=== PATIENT | female | born 1935 | race Caucasian/White ===

== ENCOUNTER 2017-04-09 22:20 | Emergency (ER) | payer MEDICARE, OTHER ==
[~2017-04-09] VITALS: Ht 154.9 cm; Wt 52.0 kg
[~2017-04-09 22:20] MED LIST: METR-1 PO; VANC250C2 PO
[2017-04-09] MEDS ORDERED: SODIUM CHLORIDE 0.9% FLUSH 10 ML FLUSH IVF PRN (22:30)
[2017-04-09] MEDS ORDERED: LORazepam 2 MG/ML VIAL IV PUSH ONE (22:30)
[2017-04-09 22:33] VITALS: BP 185/89; PULSE 80; RESP 25; TEMP 98; O2SAT 96
[2017-04-09 22:35] VITALS: O2SAT 100
--- NOTE | 2017-04-09 22:48 | PD ---
HPI Chief Complaint: Chest Pain Time Seen by Provider: 22:28 Travel History International Travel<30 days: No Contact w/Intl Traveler<30days: No Traveled to known affect area: No History of Present Illness HPI This is a 81-year-old female with a history of CHF, anxiety disorder, reveals intra-abdominal abscess with colitis, who is in hospice, who [facility] from the [facility] with shortness of breath and abdominal cramps. The patient has had loose stools over last 24 hours. She states they gave her medication at the nursing facility however did not help. She reports now that the discomfort is intermittent. She also reports shortness breath. When paramedics arrived, they found her to be to get neck however her sats were in the high 90s. They placed her on nasal cannula. She did calm down somewhat. She was also complaining of nausea and they administered Zofran 4 mg. There is no reported fevers, chills. There are no other complaints at the time my examination. PFSH Past Medical History Cancer: No Cardiovascular Problems: Yes (CHF) High Cholesterol: Yes Chemotherapy: Yes Congestive Heart Failure: Yes COPD: Yes Endocrine: No Gastrointestinal Disorders: Yes (Ulcer) GERD: Yes Genitourinary: No Immune Disorder: No Musculoskeletal: Yes (Fracute vertebrae and broken ribs) Neurologic: Yes Psychiatric: No Reproductive: No Respiratory: Yes Immunizations Current: Yes Migraines: Yes Pancreatitis: Yes Radiation Therapy: Yes Ulcer: Yes Menopausal: Yes Ovarian Cysts: Yes Past Surgical History Abdominal Surgery: No Appendectomy: Yes Cardiac Surgery: No Cholecystectomy: Yes Ear Surgery: No Endocrine Surgery: No Eye Surgery: No Genitourinary Surgery: No Gynecologic Surgery: Yes (Breast lumpectomy) Hysterectomy: Yes Oral Surgery: No Thoracic Surgery: No Other Surgery: Yes Social History Alcohol Use: No Tobacco Use: No Substance Use: No Allergies-Medications (Allergen,Severity, Reaction): Coded Allergies: Aspirin (Verified Adverse Reaction, Mild, "Can't take due to ulcer", ) Ibuprofen (Verified Adverse Reaction, Mild, "Can't take due to ulcer", 04/09) Reported Meds & Prescriptions Reported Meds & Active Scripts Active Vancomycin (Vancomycin HCl) 250 Mg Cap 500 Mg PO QID 10 Days Flagyl (Metronidazole) 500 Mg Tab 500 Mg PO TID 10 Days Review of Systems Except as stated in HPI: all other systems reviewed are Neg General / Constitutional: No: Fever, Chills HENT: No: Headaches, Lightheadedness Cardiovascular: Positive: Chest Pain or Discomfort, No: Palpitations (patient points to her epigastrium and says that it hurts. When asked if she has chest pain she says possibly.) Respiratory: Positive: Shortness of Breath, No: Cough Gastrointestinal: Positive: Nausea, Diarrhea (reported earlier), Abdominal Pain (epigastric and supraumbilical), No: Vomiting Genitourinary: No: Frequency, Dysuria Musculoskeletal: Positive: Edema (bilateral feet), No: Weakness, Pain Neurologic: No: Weakness, Dizziness, Headache Physical Exam Narrative GENERAL: Elderly anxious appearing female in mild respiratory discomfort. SKIN: Focused skin assessment warm/dry. HEAD: Atraumatic. Normocephalic. EYES: No scleral icterus. No injection or drainage. ENT: No nasal bleeding or discharge. Mucous membranes pink and moist. NECK: Trachea midline. Supple. No JVD. CARDIOVASCULAR: Regular rate and rhythm. No murmur appreciated. RESPIRATORY: Tachypnea. Clear to auscultation bilaterally. GASTROINTESTINAL: Abdomen soft, nondistended. No rebound or guarding. She has subjective epigastric and periumbilical discomfort. MUSCULOSKELETAL: No obvious deformities. No clubbing. No cyanosis. No edema. NEUROLOGICAL: Awake and alert. No obvious cranial nerve deficits. Motor grossly within normal limits. Normal speech. Data Data Last Documented VS Vital Signs Date Time Temp Pulse Resp B/P Pulse Ox O2 Delivery O2 Flow Rate FiO2 04/09/17 22:35 100 Nasal Cannula 2 04/09/17 22:35 80 25 04/09/17 22:33 98.0 185/89 Orders Lorazepam Inj (Ativan Inj) (04/09/17 22:30) Complete Blood Count With Diff (04/09/17 22:29) Comprehensive Metabolic Panel (04/09/17 22:29) Ckmb (Isoenzyme) Profile (04/09/17 22:29) Troponin I (04/09/17 22:29) Urinalysis - C+S If Indicated (04/09/17 22:29) Iv Access Insert/Monitor (04/09/17 22:29) Electrocardiogram (04/09/17 22:29) Ecg Monitoring (04/09/17 22:29) Oximetry (04/09/17 22:29) Oxygen Administration (04/09/17 22:29) Chest, Single Ap (04/09/17 22:29) Sodium Chloride 0.9% Flush (Ns Flush) (04/09/17 22:30) Labs Laboratory Tests Test 04/09/17 04/10/17 22:40 00:11 White Blood Count 9.2 TH/MM3 Red Blood Count 3.80 MIL/MM3 Hemoglobin 12.2 GM/DL Hematocrit 35.4 % Mean Corpuscular Volume 93.2 FL Mean Corpuscular Hemoglobin 32.0 PG Mean Corpuscular Hemoglobin 34.3 % Concent Red Cell Distribution Width 13.8 % Platelet Count 311 TH/MM3 Mean Platelet Volume 8.0 FL Neutrophils (%) (Auto) 75.0 % Lymphocytes (%) (Auto) 18.8 % Monocytes (%) (Auto) 5.4 % Eosinophils (%) (Auto) 0.4 % Basophils (%) (Auto) 0.4 % Neutrophils # (Auto) 6.9 TH/MM3 Lymphocytes # (Auto) 1.7 TH/MM3 Monocytes # (Auto) 0.5 TH/MM3 Eosinophils # (Auto) 0.0 TH/MM3 Basophils # (Auto) 0.0 TH/MM3 CBC Comment DIFF FINAL Differential Comment Urine Color LIGHT-YELLOW Urine Turbidity CLEAR Urine pH 8.0 Urine Specific [place] 1.006 Urine Protein NEG mg/dL Urine Glucose (UA) NEG mg/dL Urine Ketones NEG mg/dL Urine Occult Blood NEG Urine Nitrite NEG Urine Bilirubin NEG Urine Urobilinogen LESS THAN 2.0 MG/DL Urine Leukocyte Esterase NEG Urine RBC LESS THAN 1 /hpf Urine WBC 1 /hpf Urine Amorphous Sediment RARE Microscopic Urinalysis Comment CULT NOT INDICATED Sodium Level 139 MEQ/L Potassium Level 3.8 MEQ/L Chloride Level 103 MEQ/L Carbon Dioxide Level 30.5 MEQ/L Anion Gap 6 MEQ/L Blood Urea Nitrogen 13 MG/DL Creatinine 0.80 MG/DL Estimat Glomerular Filtration 69 ML/MIN Rate Random Glucose 101 MG/DL Calcium Level 9.5 MG/DL Total Bilirubin 0.3 MG/DL Aspartate Amino Transf 17 U/L (AST/SGOT) Alanine Aminotransferase 26 U/L (ALT/SGPT) Alkaline Phosphatase 122 U/L Total Creatine Kinase 56 U/L Troponin I LESS THAN 0.02 NG/ML Total Protein 7.3 GM/DL Albumin 3.4 GM/DL MDM Medical Decision Making Medical Screen Exam Complete: Yes Emergency Medical Condition: Yes Differential Diagnosis Acute anxiety episode versus gastroenteritis versus colitis versus COPD versus CHF Narrative Course 81-year-old female who is in hospice, who presents here with complaints of anxiety episode. The patient was feeling short of breath. She was complaining of abdominal discomfort. She's also complaining of shortness of breath. All of her laboratory tests are within normal limits. She is afebrile. She is nontoxic-appearing. She's been given Ativan 1 mg dose here in the emergency department. She'll be [facility] back to her [facility]. Diagnosis Primary Impression: Anxiety Additional Impression: Pain, abdominal Disposition: 51 HOSPICE/MED FACILITY Condition: Stable Alberto Uribe MD Apr 09, 2017 22:48
--- NOTE | 2017-04-09 22:55 | RADRPT ---
EXAM DATE/TIME: 04/09/2017 22:46 [facility] COMPARISON: CHEST SINGLE AP, September 26, 2016, 5:14. INDICATIONS : Chest pain. MEDICAL HISTORY : Chronic obstructive pulmonary disease. Carcinoma, breast. SURGICAL HISTORY : None. ENCOUNTER: Initial ACUITY: 1 day PAIN SCORE: 0/10 LOCATION: Bilateral chest FINDINGS: The heart size is normal. The lungs are clear. No effusion is seen. Clips are seen in the left axilla ry region. The bones are osteopenic. There are concave deformities at several thoracic vertebral bodi es. CONCLUSION: No acute cardiopulmonary process. Sp Mendoza MD on April 09, 2017 at 22:53 Board Certified Radiologist. This report was verified electronically.
[2017-04-09 23:33] LABS: AUTOMATED NEUTROPHIL # 6.9 TH/MM3 (1.8-7.7); BASOPHIL % 0.4 % (0.0-2.0); EOSINOPHIL % 0.4 % (0.0-4.0); HEMATOCRIT 35.4 % (35.0-46.0); HEMO FLAGS DIFF FINAL; LYMPH % 18.8 % (9.0-44.0); LYMPHOCYTE # 1.7 TH/MM3 (1.0-4.8); MEAN CELL VOLUME 93.2 FL (80.0-100.0); MEAN CORPUSCULAR HGB CONC 34.3 % (32.0-36.0); MONO % 5.4 % (0.0-8.0); PLATELET COUNT 311 TH/MM3 (150-450); RED CELL DISTRIBUTION WIDTH 13.8 % (11.6-17.2); WHITE BLOOD COUNT 9.2 TH/MM3 (4.0-11.0)
[2017-04-09 23:39] LABS: BLOOD, URINE NEG (NEG); COMMENT (UR) CULT NOT INDICATED; CULTURE IF INDICATED CULT NOT INDICATED; GLUCOSE,URINE NEG (NEG); KETONE, URINE NEG (NEG); NITRITE,URINE NEG (NEG); URINE COLOR LIGHT-YELLOW (YELLW/STRAW)
[2017-04-10 00:40] LABS: ALT (GPT) 26 U/L (10-53); ANION GAP 6 MEQ/L (5-15); AST (GOT) 17 U/L (15-37); BICARBONATE 30.5 MEQ/L (21.0-32.0); BLOOD UREA NITROGEN 13 MG/DL (7-18); CHLORIDE 103 MEQ/L (98-107); GLOMERULAR FILTRATION RATE 69 ML/MIN (>89); POTASSIUM 3.8 MEQ/L (3.5-5.1); SODIUM (NA) 139 MEQ/L (136-145)
[2017-04-10 00:44] LABS: ALKALINE PHOSPHATASE 122 U/L (45-117); TOTAL BILIRUBIN ADULT 0.3 MG/DL (0.2-1.0)
[2017-04-10 00:45] LABS: CREATINE KINASE 56 U/L (26-192)
[2017-04-10 06:21] VITALS: BP 111/55; PULSE 68; RESP 18; TEMP 98.1; O2SAT 98
--- NOTE | 2017-04-10 14:34 | EKG ---
Date Performed: 04/09/2017 Time Performed: 22:35:23 PTAGE: 81 years EKG: Sinus rhythm Since previous tracing, no significant change noted NORMAL ECG PREVIOUS TRACING : 04/08/1996 19.41 DOCTOR: Mansoor Hernandez Interpretating Date/Time 04/10/2017 14:34:13
== END 2017-04-10 06:23 | disposition hospice, inpatient (51) ==
LOC: NEPE 22:20
DX: F41.9 Anxiety disorder, unspecified (principal)
CPT/HCPCS: 71010; 80053; 81001; 82550; 84484; 85025; 93005; 96374; 99285; J2060

== ENCOUNTER 2017-04-13 13:52 | Emergency (ER) | payer OTHER ==
[2017-04-13 13:54] VITALS: BP 134/78; PULSE 75; RESP 16; TEMP 98.4; O2SAT 99
[2017-04-13] MEDS ORDERED: SENN1TAB PO (14:08)
[2017-04-13] MEDS ORDERED: POTA10CA PO (14:08)
[2017-04-13] MEDS ORDERED: FAMO20TA2 PO (14:08)
[2017-04-13] MEDS ORDERED: FURO20TA PO (14:08)
[2017-04-13] MEDS ORDERED: APIXABAN 5 MG TABLET PO ONE (14:30)
[2017-04-13] MEDS ORDERED: APIX5TAB PO (14:32)
--- NOTE | 2017-04-13 14:32 | PD ---
HPI Chief Complaint: Abnormal Results Time Seen by Provider: 14:03 Travel History International Travel<30 days: No Contact w/Intl Traveler<30days: No Traveled to known affect area: No History of Present Illness HPI 81-year-old female was sent to the emergency room for evaluation of DVT. Patient was seen by personal physician and sent for outpatient ultrasound of bilateral lower extremity today. Ultrasound bilateral lower extremity done at [facility] today shows nonocclusive DVT left leg. Patient denies any headache. Patient denies any chest pain or shortness of breath. Patient denies abdominal pain. Patient states that she has pain with swelling left leg however unable to tell me how long the symptoms have been there. Patient denies any recent injury. Patient denies any fever chills. PFSH Past Medical History Cancer: No Cardiovascular Problems: Yes (CHF) High Cholesterol: Yes Chemotherapy: Yes Congestive Heart Failure: Yes COPD: Yes Endocrine: No Gastrointestinal Disorders: Yes (Ulcer) GERD: Yes Genitourinary: No Immune Disorder: No Musculoskeletal: Yes (Fracute vertebrae and broken ribs) Neurologic: Yes Psychiatric: No Reproductive: No Respiratory: Yes Immunizations Current: Yes Migraines: Yes Pancreatitis: Yes Radiation Therapy: Yes Ulcer: Yes ?: Not Menopausal: Yes Ovarian Cysts: Yes Past Surgical History Abdominal Surgery: No Appendectomy: Yes Cardiac Surgery: No Cholecystectomy: Yes Ear Surgery: No Endocrine Surgery: No Eye Surgery: No Genitourinary Surgery: No Gynecologic Surgery: Yes (Breast lumpectomy) Hysterectomy: Yes Oral Surgery: No Thoracic Surgery: No Other Surgery: Yes Social History Alcohol Use: No Tobacco Use: No Substance Use: No Allergies-Medications (Allergen,Severity, Reaction): Coded Allergies: Aspirin (Verified Adverse Reaction, Mild, "Can't take due to ulcer", ) Ibuprofen (Verified Adverse Reaction, Mild, "Can't take due to ulcer", 04/13) Reported Meds & Prescriptions Reported Meds & Active Scripts Active Reported Famotidine 20 Mg Tab 20 Mg PO DAILY Furosemide 20 Mg Tab 20 Mg PO DAILY Potassium Chloride ER (Potassium Chloride) 10 Meq Cap 10 Meq PO DAILY Senna-Plus (Sennosides-Docusate Sodium) 8.6-50 Mg Tab 1 Tab PO BID Review of Systems General / Constitutional: No: Fever Eyes: No: Visual changes HENT: No: Headaches Cardiovascular: No: Chest Pain or Discomfort Respiratory: No: Shortness of Breath Gastrointestinal: No: Abdominal Pain Genitourinary: No: Dysuria Musculoskeletal: Positive: Pain Skin: No Rash Neurologic: No: Weakness Psychiatric: No: Depression Endocrine: No: Polydipsia Hematologic/Lymphatic: No: Easy Bruising Physical Exam Narrative GENERAL: Well-nourished, well-developed patient. SKIN: Focused skin assessment warm/dry. HEAD: Normocephalic. EYES: No scleral icterus. No injection or drainage. NECK: Supple, trachea midline. No JVD or lymphadenopathy. CARDIOVASCULAR: Regular rate and rhythm without murmurs, gallops, or rubs. RESPIRATORY: Breath sounds equal bilaterally. No accessory muscle use. GASTROINTESTINAL: Abdomen soft, non-tender, nondistended. MUSCULOSKELETAL: No cyanosis, or edema. Mild tenderness over left lower extremity. No redness no heat noted. BACK: Nontender without obvious deformity. No CVA tenderness. Neurologic exam: Patient awake and alert oriented to person. Patient moves all extremity well. No obvious focal neurological deficit. Data Data Last Documented VS Vital Signs Date Time Temp Pulse Resp B/P Pulse Ox O2 Delivery O2 Flow Rate FiO2 04/13/17 13:54 98.4 75 16 134/78 99 MDM Medical Decision Making Medical Screen Exam Complete: Yes Emergency Medical Condition: Yes Differential Diagnosis Differential diagnosis including DVT. Narrative Course 81-year-old female with pain swelling left lower extremity. Outpatient ultrasound shows positive for left leg DVT. Blood tests done at [facility] 4 days ago with normal kidney function . Eliquis 10 mg by mouth given. Diagnosis Primary Impression: DVT (deep venous thrombosis) Qualified Code: I82.412 - Acute deep vein thrombosis (DVT) of femoral vein of left lower extremity Patient Instructions: General Instructions Additional Instructions: Eliquis 10 mg twice a day for 7 days and after that 5 mg twice a day subsequently. Follow-up with personal physician. Med/Other Pt SpecificInfo: Prescription(s) given Scripts Apixaban (Eliquis)5 Mg Tab5 Mg PO BID #60 TAB Ref 0 Prov:Panfilo Mendoza MD 04/13/17 Apixaban (Eliquis)5 Mg Tab10 Mg PO BID #14 TAB Ref 0 Prov:Panfilo Mendoza MD 04/13/17 Disposition: 01 DISCHARGE HOME Condition: Stable Panfilo Mendoza MD Apr 13, 2017 14:32
== END 2017-04-13 15:16 | disposition home or self-care (01) ==
LOC: PHED 13:52
DX: I82.412 Acute embolism and thrombosis of left femoral vein (principal)
CPT/HCPCS: 99283